=== PATIENT | female | born 1970 | race Caucasian/White ===

== ENCOUNTER → 2022-07-20 | Outpatient (CLI) | payer OTHER, SELFPAY ==
--- NOTE | 2022-07-20 | CER_PTH ---
PATIENT: SUSI DIAMOND LOC: [facility] U#:[id number] AGE/SX: 52/F ROOM: RE07/20/[address]: Dr. Winnie Sumner, : 1970 BED: DIS: 07/20/2022 SPEC #: [id number] RECD: 07/20/22 14:54 STATUS: ARNULFO SYBIL #: [id number] JASSON: 07/20/22 00:[address]: Winnie Sumner DEPT: SURGICAL PATHOLOGY RECD BY: Deann Franklin Tissues: A - Uterine cervix, NOS B - Endocervical C - Endometrium, NOS Procedures: Surgery Specimen Level IV HEADER OPERATION: Colposcopy and endometrial biopsy PRE-OP DIAGNOSIS: Atypical endocervical cells TISSUE SUBMITTED: A ? Cervical biopsy 7 & 5 o?clock, B ? ECC, C ? Endometrial biopsy MICROSCOPIC DIAGNOSIS A. Cervix, 7 and 5 o?clock, biopsy: Focal mild chronic inflammation. Negative for dysplasia. B. Endocervical curettings: Scant fragments of benign ecto- and endocervical epithelium and mucus. Negative for dysplasia. C. Endometrial biopsy: Strips of benign endometrial epithelium with superficial fragments of benign endometrial tissue. Fragments of benign endocervical mucosa. JOSE:davina 07/24/2022 MICROSCOPIC DESCRIPTION Slides are reviewed. GROSS DESCRIPTION A - Received in fixative is one container labeled with the patient's name and designated cervical biopsy 7 and 5 o'clock. The specimen consists of one irregular fragment of light day soft tissue that measures 0.7 x 0.3 x 0.1 cm. The specimen is totally submitted in one cassette. B - Received in fixative is one container labeled with the patient's name and designated ECC. The specimen consists of multiple irregular fragments of day mucoid tissue that in aggregate measure 2 x 2 x 0.1 cm. The specimen is totally submitted in one cassette. C - Received in fixative is one container labeled with the patient's name and designated endometrial biopsy. The specimen consists of multiple fragments of hemorrhagic soft tissue mixed with mucoid tissue that in aggregate measure 3 x 2.5 x 0.1 cm. The specimen is totally submitted in one cassette. / JOSE:davina 07/23/2022 TC:3 CPT: 52970 x3
== END | disposition home or self-care (01) ==
PROVIDERS: Visit Provider Student in an Organized Health Care Education/Training Program
DX: R87.610 Atypical squamous cells of undetermined significance on cytologic smear of cervix (ASC-US) (principal)
CPT/HCPCS: 88305